=== PATIENT | male | born 1955 | race Caucasian/White ===

== ENCOUNTER 2017-12-24 10:06 | Inpatient (IN) | payer OTHER ==
[~2017-12-24] VITALS: Ht 182.9 cm; Wt 106.6 kg
[2017-12-24 11:14] LABS: Basophils # (auto) 0.1 uL; Basophils % (auto) 0.7 % (0.0-2.0); Eosinophils # (auto) 0.2 uL; Eosinophils % (auto) 1.8 % (0.0-7.0); Hematocrit 49.8 % (41.0-53.0); Hemoglobin 16.7 g/dL (13.5-17.5); Lymphocytes # (auto) 2.7 uL; Lymphocytes % (auto) 27.1 % (10.0-50.0); Mean Corpuscular Hemoglobin 30.8 pg (28.0-32.0); Mean Corpuscular Hgb Conc. 33.5 g/dL (32.0-36.0); Mean Corpuscular Volume 91.9 fL (80.0-100.0); Monocytes % (auto) 10.5 % (0.0-12.0); Neutrophils # (auto) 5.9 uL; Neutrophils % (auto) 59.9 % (37.0-80.0); Nucleated Red Blood Cells % 0.2 %; Platelet Count (auto) 275 10^3/uL (140-450); Red Blood Cells 5.42 10^6/uL (4.5-5.90); Red Cell Distribution Width 13.4 % (11.8-14.3); White Blood Cell 9.8 10^3/uL (4.4-10.8)
[2017-12-24 11:32] LABS: Alanine Aminotransferase 47 U/L (16-61); Albumin 4.1 g/dL (3.4-5.0); Alkaline Phosphatase 114 U/L (45-117); Anion Gap 13 (5-15); Aspartate Aminotransferase 22 U/L (15-37); BUN/Creatinine Ratio 14.1; Bilirubin, Total 0.7 mg/dL (0.2-1.0); Blood Urea Nitrogen 19 mg/dL (7-18); Calcium 9.2 mg/dL (8.5-10.1); Carbon Dioxide 17 mmol/L (21-32); Chloride 110 mmol/L (98-107); GFR African American 69 mL/min; GFR Non-African American 57 mL/min; Glucose 131 mg/dL (74-106); Potassium 4.3 mmol/L (3.5-5.1); Sodium 140 mmol/L (136-145); Total Protein 8.6 g/dL (6.4-8.2)
[2017-12-24] MEDS ORDERED: cloNIDine HCL 0.1 MG TAB PO ONE ×2 (13:00→22:45)
[2017-12-24] MEDS ORDERED: LORazepam 2MG/ML-1ML VIAL IV ONE (13:00)
[2017-12-24] MEDS ORDERED: ENOXAPARIN SOD 30 MG/0.3 ML SYRINGE IV ONE (14:30)
[2017-12-24] MEDS ORDERED: NITROGLYCERIN 0.4MG/HR TOPICAL PATCH TD SCH (14:30)
[2017-12-24] MEDS ORDERED: BENAZEPRIL HCL 10 MG TAB PO SCH (14:45)
[2017-12-24] MEDS ORDERED: BENAZEPRIL HCL 10 MG TAB PO ONE (14:45)
[2017-12-24] MEDS ORDERED: ENOXAPARIN SOD 80 MG/0.8ML SYRINGE SC SCH (14:59)
[2017-12-24] MEDS ORDERED: ALUM & MAG HYDROX-SIMETH LIQ(MAALOX) 30 ML PO ONE (15:15)
[2017-12-24] MEDS ORDERED: MORPHINE SULF INJ 2 MG/ML SYRINGE 1ML IV PRN (15:15)
[2017-12-24] MEDS ORDERED: amLODIPine BESYLATE 5 MG TAB PO ONE (15:15)
[2017-12-24] MEDS ORDERED: cloNIDine HCL 0.1 MG TAB PO PRN (15:15)
[2017-12-24] MEDS ORDERED: ZOLPIDEM TARTRATE 5 MG TAB PO PRN (15:15)
[2017-12-24] MEDS ORDERED: ACETAMINOPHEN 325 MG TAB PO PRN (15:15)
[2017-12-24] MEDS ORDERED: MORPHINE SULFATE 4 MG/ML SYR/VIAL IV PRN (15:15)
[2017-12-24] MEDS ORDERED: DEXTROSE (50%) 50ML SYRG IV PRN (15:15)
[2017-12-24] MEDS ORDERED: NITROGLYCERIN 0.4 MG SL TAB SL PRN ×2 (15:15)
[2017-12-24] MEDS ORDERED: ACETYLCYSTEINE ORAL for CIN 20%(200MG/ML) 4ML PO ONE (15:30)
[2017-12-24] MEDS ORDERED: HYDROcodone-ACET 5/325MG TAB PO PRN (15:30)
[2017-12-24 16:13] LABS: INR 1.05 (0.9-1.15); Prothrombin Time 11.5 sec (9.37-12.3)
[2017-12-24] MEDS: LORazepam 0.5 MG TAB PO PRN ×2 (16:43→22:54)
[2017-12-24] MEDS: InsuLIN REG 1unit/0.01ml Soln (100units/ml) SC SCH ×2 (17:55→22:00)
[2017-12-24] MEDS: ACCU-CHEK COMFORT CURVE STRIP VI SCH ×2 (17:55→22:14)
[2017-12-24 18:09] LABS: Urine Bacteria NONE SEEN /hpf (None Seen); Urine Blood 1+ /uL (Negative); Urine Hyaline Cast FEW /lpf (0 - 2); Urine Mucus FEW (None Seen); Urine Specific Gravity 1.023 (1.001-1.035); Urine WBC 1 /hpf (0 - 3)
[2017-12-24] MEDS ORDERED: IOHEXOL 350 MG/ML 100ML IJ ONE (20:42)
[2017-12-24] MEDS ORDERED: LIDOCAINE 2%HCL (LOCAL ANESTH.) INJ 20ML MDV ONE (20:43)
[2017-12-24] MEDS ORDERED: ANGIOMAX 250 MG VIAL IV ONE (21:07)
[2017-12-24] MEDS ORDERED: fentaNYL CITRATE 100 MCG/2 ML VL ONE (21:07)
[2017-12-24] MEDS ORDERED: MIDAZOLAM HCL 1MG/1ML-2 ML VIAL ONE (21:08)
[2017-12-24] MEDS ORDERED: SODIUM CHL 0.9% 50 ML ONE (21:08)
[2017-12-24] MEDS ORDERED: ONDANSETRON HCL 4 MG/2 ML VIAL ONE (21:10)
[2017-12-24] MEDS ORDERED: NITROGLYCERIN 0.4MG/DOSE SPRAY 4.9GM ONE (21:24)
[2017-12-24] MEDS ORDERED: NITROGLYCERIN 5MG/ML 10ML VIAL IV ONE (21:27)
[2017-12-24] MEDS ORDERED: CLOPIDOGREL 300 MG TAB ONE (21:37)
[2017-12-24] MEDS ORDERED: METOCLOPRAMIDE HCL 5MG/ml INJ 2ml VIAL ONE (21:38)
[2017-12-24] MEDS ORDERED: ISOSORBIDE MONONITRATE 60 MG TAB PO ONE ×2 (21:45→22:02)
[2017-12-24] MEDS ORDERED: SODIUM CHLORIDE 0.9% 1,000 ML IV SCH (21:45)
[2017-12-24] MEDS ORDERED: ENOXAPARIN SOD 100 MG/1 ML SYRINGE SC SCH (22:00)
[2017-12-24] MEDS ORDERED: ACETYLCYSTEINE ORAL for CIN 20%(200MG/ML) 4ML PO SCH (22:00)
[2017-12-24] MEDS ORDERED: ATORVASTATIN 20 MG TAB PO SCH (22:00)
[2017-12-24] MEDS ORDERED: ENALAPRIL MALEATE 2.5 MG TAB PO SCH (22:00)
[2017-12-24] MEDS: SODIUM CHLOR 0.9% PF (SALINE LOCK) 10ML VIAL IV SCH (22:07)
[2017-12-24] MEDS: CARVEDILOL 3.125 MG TAB PO SCH (22:14)
[2017-12-24] MEDS ORDERED: ONDANSETRON HCL 4 MG/2 ML VIAL IV PRN (22:30)
[2017-12-24] MEDS ORDERED: hydrALAZINE HCL 20 MG/ML VL ONE (22:35)
[2017-12-24] MEDS ORDERED: cloNIDine HCL 0.1 MG TAB ONE (22:35)
[2017-12-24] MEDS ORDERED: hydrALAZINE HCL 20 MG/ML VL IV ONE (22:45)
[2017-12-24 23:15] VITALS: BP 151/83
[2017-12-24 23:30] VITALS: BP 151/83
[2017-12-24] MEDS ORDERED: METO25TA5 PO (23:59)
[2017-12-25] MEDS ORDERED: ACETYLCYSTEINE ORAL for CIN 20%(200MG/ML) 4ML PO ONE (00:15)
[2017-12-25] MEDS ORDERED: ACETYLCYSTEINE 20%(200MG/ML) SOL 4ML ONE (00:55)
[2017-12-25 05:00] VITALS: BP 132/79
[2017-12-25] MEDS: SODIUM CHLOR 0.9% PF (SALINE LOCK) 10ML VIAL IV SCH ×2 (05:34→14:14)
[2017-12-25 06:44] LABS: Basophils # (auto) 0 uL; Basophils % (auto) 0.2 % (0.0-2.0); Eosinophils # (auto) 0 uL; Eosinophils % (auto) 0.1 % (0.0-7.0); Hematocrit 41.5 % (41.0-53.0); Hemoglobin 14.2 g/dL (13.5-17.5); Lymphocytes # (auto) 1.4 uL; Lymphocytes % (auto) 12.1 % (10.0-50.0); Mean Corpuscular Hemoglobin 30.8 pg (28.0-32.0); Mean Corpuscular Hgb Conc. 34.3 g/dL (32.0-36.0); Monocytes # (auto) 0.8 uL; Monocytes % (auto) 7.4 % (0.0-12.0); Neutrophils # (auto) 9.1 uL; Neutrophils % (auto) 80.2 % (37.0-80.0); Platelet Count (auto) 218 10^3/uL (140-450); Red Blood Cells 4.61 10^6/uL (4.5-5.90); Red Cell Distribution Width 13.5 % (11.8-14.3); White Blood Cell 11.4 10^3/uL (4.4-10.8)
[2017-12-25] MEDS: InsuLIN REG 1unit/0.01ml Soln (100units/ml) SC SCH ×3 (06:44→17:53)
[2017-12-25] MEDS: ACCU-CHEK COMFORT CURVE STRIP VI SCH ×3 (06:44→17:52)
[2017-12-25 07:13] LABS: Albumin 3.6 g/dL (3.4-5.0); Bilirubin, Total 0.9 mg/dL (0.2-1.0); Calcium 8.6 mg/dL (8.5-10.1); Magnesium 2.5 mg/dL (1.6-2.6); Total Protein 7.4 g/dL (6.4-8.2)
[2017-12-25 08:00] VITALS: BP 151/81
[2017-12-25] MEDS ORDERED: amLODIPine BESYLATE 5 MG TAB PO SCH ×2 (10:00)
[2017-12-25] MEDS ORDERED: CLOPIDOGREL BISULFATE 75 MG TAB PO SCH (10:00)
[2017-12-25] MEDS ORDERED: ACETYLCYSTEINE 10 %(100MG/ML) SOL 4ML PO SCH (10:00)
[2017-12-25] MEDS ORDERED: ASPirin 81 mg TAB PO SCH (10:00)
[2017-12-25] MEDS ORDERED: ISOSORBIDE MONONITRATE 60 MG TAB PO SCH (10:00)
[2017-12-25] MEDS ORDERED: DOCUSATE SOD 100 MG CAP PO SCH (10:00)
[2017-12-25] MEDS: CARVEDILOL 3.125 MG TAB PO SCH (10:54)
[2017-12-25 12:00] VITALS: BP 149/85
[2017-12-25] MEDS ORDERED: ATOR20TA50 PO (14:33)
[2017-12-25] MEDS ORDERED: CAR3125T PO (14:33)
[2017-12-25] MEDS ORDERED: ISO60SRT PO (14:33)
[2017-12-25] MEDS ORDERED: ASPI81CH43 PO (14:33)
[2017-12-25] MEDS ORDERED: AML5T PO (14:33)
[2017-12-25] MEDS ORDERED: CLOP75TA28 PO (14:33)
[2017-12-25] MEDS ORDERED: LOSA25TA9 PO (14:38)
[2017-12-25] MEDS ORDERED: NITR0.4S29 SL (14:50)
[2017-12-25 16:45] VITALS: BP 120/88
== END 2017-12-25 18:30 | disposition home or self-care (01) | DRG 251 ==
LOC: ER 10:06 → OVERFLOW 10:07 → TELE-WESTW 23:05
PROVIDERS: ADMIT Internal Medicine; ATTEND Internal Medicine
PROC: 02703ZZ Dilation of Coronary Artery, One Artery, Percutaneous Approach (ICD-10-PCS; principal; 2017-12-24)
PROC: 4A023N7 Measurement of Cardiac Sampling and Pressure, Left Heart, Percutaneous Approach (ICD-10-PCS; 2017-12-24)
PROC: B2111ZZ Fluoroscopy of Multiple Coronary Arteries using Low Osmolar Contrast (ICD-10-PCS; 2017-12-24)
DX: I21.4 Non-ST elevation (NSTEMI) myocardial infarction (principal); E11.22 Type 2 diabetes mellitus with diabetic chronic kidney disease; I13.10 Hypertensive heart and chronic kidney disease without heart failure, with stage 1 through stage 4 chronic kidney disease, or unspecified chronic kidney disease; N18.3 Chronic kidney disease, stage 3 (moderate); E11.65 Type 2 diabetes mellitus with hyperglycemia; F41.9 Anxiety disorder, unspecified; R07.9 Chest pain, unspecified; E78.5 Hyperlipidemia, unspecified; E66.9 Obesity, unspecified; Z68.31 Body mass index [BMI] 31.0-31.9, adult; Z82.49 Family history of ischemic heart disease and other diseases of the circulatory system; Z86.79 Personal history of other diseases of the circulatory system; Z87.891 Personal history of nicotine dependence; Z88.0 Allergy status to penicillin
CPT/HCPCS: 36415; 71046; 80053; 80061; 81001; 82962; 83036; 83735; 83880; 84443; 84484; 85025; 85610; 87081; 92920; 93005; 93306; 93458; 96361; 96372; 96374; 96375; 99152; 99291; J1815; J2250; J2405; J3490